=== PATIENT | male | born 1980 | race Caucasian/White ===

== ENCOUNTER 2018-03-05 07:50 | Emergency (ER) | payer SELFPAY ==
[2018-03-05] MEDS ORDERED: ASPIRIN 81 MG CHEWABLE TABLET ONE (08:15)
[2018-03-05] MEDS ORDERED: FENTANYL CITR 100 MCG/2 ML ONE (08:19)
[2018-03-05 08:35] LABS: Absolute Neutrophil 4.1 K/uL (1.8-8.0); Basophils % 0.6 % (0-1.3); Eosinophils % 0.6 % (0-4.4); Hematocrit 45.7 % (39.6-49.0); Lymphocytes % 15.9 % (15.3-44.8); MPV 8.6 fL (7.6-11.3); Monocytes % 15.9 % (3.3-12.3); RBC Red Blood Cell Count 4.86 M/uL (4.33-5.43)
[2018-03-05 08:37] LABS: Protime INR 1.13
[2018-03-05 08:57] LABS: ALT/SGPT 41 U/L (12-78); AST/SGOT 36 U/L (15-37); Albumin 3.4 g/dL (3.4-5.0); Alkaline Phosphatase 52 U/L (45-117); BUN Blood Urea Nitrogen 20 mg/dL (7-18); Bicarbonate 29 mmol/L (21-32); Bilirubin Direct 0.1 mg/dL (0-0.2); Bilirubin Total 0.5 mg/dL (0.2-1.0); Creatine Phosphokinase 142 U/L (39-308); Glucose Level 143 mg/dL (74-106); Lipase 119 U/L (73-393); Magnesium 2.6 mg/dL (1.8-2.4); Potassium 3.1 mmol/L (3.5-5.1); Protein, Total 8.2 g/dL (6.4-8.2); Sodium Level 134 mmol/L (136-145)
[2018-03-05 08:58] LABS: CKMB Creatine Kinase MB < 1.0 ng/mL (0.3-3.6); NT PRO-BNP < 5 pg/mL (<125)
[2018-03-05 09:14] LABS: Blood Morphology Comment NOT SEEN (NOT SEEN); Platelet Estimate ADEQ
[2018-03-05] MEDS ORDERED: DEXAMETHASONE 10 MG/ML VIAL ONE (09:44)
[2018-03-05] MEDS ORDERED: POTASSIUM 25 MEQ EFFERV TAB ONE (09:44)
[2018-03-05] MEDS ORDERED: NA CHLORIDE 0.9% 1,000 ML ONE (09:44)
[2018-03-05] MEDS ORDERED: KETOROLAC 30 MG/ML INJ ONE (09:44)
--- NOTE | 2018-03-05 09:51 | ER ---
Nurse's Notes [facility] Name: Kirit Piper Age: 38 yrs Sex: Male : 1980 Arrival Date: 03/05/2018 Time: 07:53 Bed 5 Private MD: Kiara Elliott Diagnosis: Acute tonsillitis;Pain in throat and chest Presentation: 03/05 07:58 Presenting complaint: Patient states: chest tightness, fever, sore throat that began 2 ss days ago. Transition of care: patient was not received from another setting of care. Onset of symptoms was March 03, 2018. Risk Assessment: Do you want to hurt yourself or someone else? Patient reports no desire to harm self or others. Initial Sepsis Screen: Does the patient meet any 2 criteria? No. Patient's initial sepsis screen is negative. Does the patient have a suspected source of infection? No. Patient's initial sepsis screen is negative. Care prior to arrival: None. 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 - Social history:: Smoking status: Patient/guardian denies using tobacco. - Ebola Screening: : Patient denies exposure to infectious person Patient denies travel to an Ebola-affected area in the 21 days before illness onset Patient denies travel to an Ebola-affected area in the 21 days before illness onset. Screenin:22 Abuse screen: Denies threats or abuse. Nutritional screening: No deficits noted. tw2 Tuberculosis screening: No symptoms or risk factors identified. Fall Risk None identified. Assessment: 08:20 General: Appears in no apparent distress. Behavior is appropriate for age. Pain: tw2 Complains of pain in "my tooth hurts but my chest feels tight too". Neuro: Level of Consciousness is awake, alert, obeys commands, Oriented to person, place, time, situation. Cardiovascular: Heart tones S1 S2 Capillary refill < 3 seconds Patient's skin is warm and dry. Respiratory: Airway is patent Respiratory effort is even, unlabored, Respiratory pattern is regular, symmetrical, Breath sounds are clear bilaterally. GI: No signs and/or symptoms were reported involving the gastrointestinal system. Abdomen is round non-distended, Bowel sounds present X 4 quads. : No signs and/or symptoms were reported regarding the genitourinary system. EENT: Throat is clear Reports "i need to get a tooth pulled or a root canal, but i dont have insurance and he wants me to take the antibiotics for 7 days before i can have it pulled". Derm: No signs and/or symptoms reported regarding the dermatologic system. Musculoskeletal: Range of motion: intact in all extremities. 08:50 Reassessment: Patient appears in no apparent distress at this time. No changes from tw2 previously documented assessment. Patient and/or family updated on plan of care and expected duration. Pain level reassessed. Patient is alert, oriented x 3, equal unlabored respirations, skin warm/dry/pink. 09:49 Reassessment: Patient appears in no apparent distress at this time. No changes from tw2 previously documented assessment. Patient and/or family updated on plan of care and expected duration. Pain level reassessed. Patient is alert, oriented x 3, equal unlabored respirations, skin warm/dry/pink. 10:50 Reassessment: educated patient on discharge instructions. Pt is attempting to find a ss friend or family member to come get him from ER and take him home. Pt reports feeling better. Vital Signs: 08:00 BP 116 / 80; Pulse 94; Resp 16; Temp 98.6(TE); Pulse Ox 96% on R/A; Weight 92.53 kg; ss Height 5 ft. 6 in. (167.64 cm); Pain 8/10; 08:49 BP 109 / 70; Pulse 73; Resp 20; Pulse Ox 96% on R/A; tw2 09:49 BP 106 / 65; Pulse 71; Resp 17; Pulse Ox 96% on R/A; tw2 10:43 BP 92 / 56; Pulse 66; Resp 14; Temp 98.7(O); Pulse Ox 96% on R/A; Pain 4/10; ss 08:00 Body Mass Index 32.93 (92.53 kg, 167.64 cm) ED Course: 07:53 Patient arrived in ED. as 07:54 Kiara Elliott is Private Physician. as 07:54 Mikhail Cruz PA is PHCP. cp 07:54 Roberto Falk MD is Attending Physician. cp 07:59 Triage completed. ss 08:00 Destiny Rodríguez RN is Primary Nurse. tw2 08:00 Arm band placed on. tw2 08:10 Bed in low position. Call light in reach. gambling monitor on. Pulse ox on. NIBP on. tw2 08:10 Initial lab(s) drawn, by me, sent to lab. Inserted saline lock: 20 gauge in right sv antecubital area, using aseptic technique. Blood collected. Flushed right antecubital with 5 ml normal saline. 08:36 X-ray completed. Portable x-ray completed in exam room. Patient tolerated procedure mh1 well. 08:41 XRAY Chest (1 view) In Process Unspecified. EDMS 10:00 Awaiting: completion of IV abx PRIOR to dischage. tw2 10:43 No provider procedures requiring assistance completed. ss 11:08 IV discontinued, intact, bleeding controlled, No redness/swelling at site. Pressure ss dressing applied. Administered Medications: 08:11 Not Given (pt allergic to hydrocodone, provider notified.): Lortab Liquid 15 ml PO once tw2 08:13 Drug: Aspirin Chewable Tablet 324 mg Route: PO; tw2 10:02 Follow up: Response: No adverse reaction tw2 08:20 Drug: fentaNYL (PF) 25 mcg Route: IVP; Site: right antecubital; tw2 09:20 Follow up: Response: No adverse reaction; Pain is decreased tw2 09:42 Drug: TORadol 30 mg Route: IVP; Site: right antecubital; sv 10:08 Follow up: Response: No adverse reaction sv 09:42 Drug: NS 0.9% 1000 ml Route: IV; Rate: 1 bolus; Site: right antecubital; sv 10:43 Follow up: IV Status: Completed infusion; IV Intake: 1000ml ss 09:44 Drug: Decadron - Dexamethasone 10 mg Route: IVP; Site: right antecubital; sv 10:07 Follow up: Response: No adverse reaction sv 09:49 Drug: Potassium Effervescent Tablet 50 mEq Route: PO; sv 10:08 Follow up: Response: No adverse reaction sv 09:52 CANCELLED (Duplicate Order): Rocephin - (cefTRIAXone) 1 grams IVPB once over 30 mins; sv (mix in 50 mL NS) 10:03 Drug: Rocephin 1 grams Route: IV; Rate: calculated rate; Site: right antecubital; sv 10:07 Follow up: Response: No adverse reaction; IV Status: Completed infusion; IV Intake: 10mlsv 10:07 Drug: Clindamycin 600 mg Route: IVPB; Infused Over: 30 mins; Site: right antecubital; sv 10:43 Follow up: IV Status: Completed infusion ss Intake: 10:07 IV: 10ml; Total: 10ml. sv 10:43 IV: 1000ml; Total: 1010ml. ss Outcome: 09:50 Discharge ordered by . cp 10:49 Condition: good ss 10:49 Discharge instructions given to patient, Pt is awaiting in exam room five for family or friend to come pick him up. Instructed on discharge instructions, follow up and referral plans. medication usage, Demonstrated understanding of instructions, follow-up care, medications, Prescriptions given X 3. 11:08 Discharged to home ambulatory, friend in lobby to pick patient up ss 11:08 Patient left the ED. ss Signatures: Dispatcher [employer] EDMS Yarely Armenta RN RN Lesli Ramirez 1 Armida Butcher Shelby, RN RN Mikhail Cruz PA PA cp Wise, Tara, RN RN tw2 Corrections: (The following items were deleted from the chart) 08:03 07:58 Acuity: BEA 3 ss ss 08:05 07:58 Acuity: BEA 4 ss ss 08:11 07:58 Presenting complaint: Patient states: fever, sore throat that began 2 days ago ss ss
--- NOTE | 2018-03-05 09:51 | EDPHYS ---
Physician Documentation [facility] Name: Kirit Piper Age: 38 yrs Sex: Male : 1980 Arrival Date: 03/05/2018 Time: 07:53 Bed 5 Private MD: Kiara Elliott ED Physician Roberto Falk HPI: 03/05 08:10 This 38 yrs old Male presents to ER via Ambulatory with complaints of Fever, cp Sore Throat, Pain All Over. 08:10 The patient or guardian reports chest pain that is located primarily in the anterior cp chest wall, bilaterally. The pain does not radiate. 08:10 Associated signs and symptoms: Pertinent positives: cough, sore throat, fever. 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 - Social history:: Smoking status: Patient/guardian denies using tobacco. - Ebola Screening: : Patient denies exposure to infectious person Patient denies travel to an Ebola-affected area in the 21 days before illness onset Patient denies travel to an Ebola-affected area in the 21 days before illness onset. ROS: 08:15 Eyes: Negative for injury, pain, redness, and discharge. cp 08:15 Constitutional: Positive for body aches, generalized pain, Negative for fever, poor PO intake. 08:15 ENT: Positive for sore throat, Negative for drainage from ear(s), ear pain, difficulty swallowing, difficulty handling secretions. 08:15 Neck: Negative for pain with movement, pain at rest, stiffness, tenderness. 08:15 Cardiovascular: Positive for chest pain, Negative for edema, palpitations. 08:15 Respiratory: Negative for cough, shortness of breath, wheezing. 08:15 Abdomen/GI: Negative for nausea, vomiting, and diarrhea, constipation, black/tarry stool, rectal bleeding. 08:15 : Negative for urinary symptoms. 08:15 Skin: Negative for cellulitis, rash. 08:15 Neuro: Negative for altered mental status, headache, syncope, near syncope, weakness. 08:15 All other systems are negative. Exam: 08:00 ECG was reviewed by the Attending Physician. cp 08:18 Constitutional: The patient appears in no acute distress, alert, awake, cp non-diaphoretic, non-toxic, well developed, well nourished. 08:18 Head/Face: Normocephalic, atraumatic. cp 08:18 Eyes: Pupils equal round and reactive to light, extra-ocular motions intact. Lids and lashes normal. Conjunctiva and sclera are non-icteric and not injected. Cornea within normal limits. Periorbital areas with no swelling, redness, or edema. 08:18 ENT: External ear(s): are unremarkable, Ear canal(s): are normal, clear, TM's: bulging, is not appreciated, bilaterally, dullness, bilaterally, erythema, is not appreciated, bilaterally, Nose: is normal, Mouth: Lips: moist, Oral mucosa: moist, Posterior pharynx: Airway: no evidence of obstruction, patent, Tonsils: bilaterally enlarged, with erythema, with exudate, Dental exam: dental caries, that is mild, diffusely, pain, that is mild, specifically in the lower left second bicuspid (#20), Voice: is normal. 08:18 Neck: External neck: is normal, ROM/movement: is normal, is supple, without pain, no range of motions limitations, no meningismus, no nuchal rigidity. 08:18 Chest/axilla: Inspection: normal, Palpation: is normal, no crepitus, no tenderness. 08:18 Cardiovascular: Rate: normal, Rhythm: regular, Edema: is not appreciated, JVD: is not appreciated. 08:18 Respiratory: the patient does not display signs of respiratory distress, Respirations: normal, no use of accessory muscles, no retractions, no splinting, no tachypnea, labored breathing, is not present, Breath sounds: are clear throughout, no decreased breath sounds, no stridor, no wheezing. 08:18 Abdomen/GI: Inspection: abdomen appears normal, Bowel sounds: active, all quadrants, Palpation: abdomen is soft and non-tender, in all quadrants, rebound tenderness, is not appreciated, voluntary guarding, is not appreciated, involuntary guarding, is not appreciated. 08:18 Back: pain, is absent, ROM is normal. 08:18 Musculoskeletal/extremity: Exam is negative for bony tenderness, calf tenderness, edema. 08:18 Skin: cellulitis, is not appreciated, no rash present. 08:18 Neuro: Orientation: to person, place \\T\\ time. Mentation: lucid, able to follow commands, Cerebellar function: is grossly normal, Motor: is normal, Sensation: is normal. Vital Signs: 08:00 BP 116 / 80; Pulse 94; Resp 16; Temp 98.6(TE); Pulse Ox 96% on R/A; Weight 92.53 kg; ss Height 5 ft. 6 in. (167.64 cm); Pain 8/10; 08:49 BP 109 / 70; Pulse 73; Resp 20; Pulse Ox 96% on R/A; tw2 09:49 BP 106 / 65; Pulse 71; Resp 17; Pulse Ox 96% on R/A; tw2 10:43 BP 92 / 56; Pulse 66; Resp 14; Temp 98.7(O); Pulse Ox 96% on R/A; Pain 4/10; ss 08:00 Body Mass Index 32.93 (92.53 kg, 167.64 cm) MDM: 07:54 Patient medically screened. cp 09:00 Differential diagnosis: abnormal EKG, acute myocardial infarction, acute pericarditis, cp chest wall pain, bronchitis, pneumonia UTI, gastroenteritis, meningitis, dehydration. 09:48 Data reviewed: vital signs, nurses notes, lab test result(s), EKG, radiologic studies, cp plain films, and as a result, I will discharge patient. 09:48 Test interpretation: by ED physician or midlevel provider: ECG. Counseling: I had a cp detailed discussion with the patient and/or guardian regarding: the historical points, exam findings, and any diagnostic results supporting the discharge/admit diagnosis, lab results, radiology results, to return to the emergency department if symptoms worsen or persist or if there are any questions or concerns that arise at home. Response to treatment: the patient's symptoms have markedly improved after treatment, patient is well hydrated. and as a result, I will discharge patient. 03/05 08:05 Order name: Basic Metabolic Panel; Complete Time: 09:26 cp 03/05 09:31 Interpretation: Normal except: NA 134; K 3.1; CL 96; GLUC 143; BUN 20; CRE 1.40; GFR 57.cp 03/05 08:05 Order name: CBC with Diff; Complete Time: 09:26 cp 03/05 08:43 Interpretation: MN% 15.9; Reviewed. cp 03/05 08:05 Order name: Ckmb; Complete Time: 09:26 cp 03/05 08:05 Order name: CPK; Complete Time: 09:26 cp 03/05 08:05 Order name: LFT's; Complete Time: 09:26 cp 03/05 08:05 Order name: Magnesium; Complete Time: 09:26 cp 03/05 08:05 Order name: NT PRO-BNP; Complete Time: 09:26 cp 03/05 08:05 Order name: PT-INR; Complete Time: 08:43 cp 03/05 08:05 Order name: Ptt, Activated; Complete Time: 08:43 cp 03/05 08:05 Order name: Troponin (emerg Dept Use Only); Complete Time: 09:26 cp 03/05 09:27 Interpretation: Within normal limits: TROPED < 0.02. cp 03/05 08:05 Order name: XRAY Chest (1 view); Complete Time: 09:59 cp 03/05 08:05 Order name: [place] Screen Profile; Complete Time: 09:29 cp / 09:29 Interpretation: MONO NEG; Reviewed. cp 03/05 08:05 Order name: Lipase; Complete Time: 09:26 cp 03/05 09:15 Order name: Manual Differential; Complete Time: 09:26 EDMS 03/05 08:05 Order name: EKG; Complete Time: 08:05 cp 03/05 08:05 Order name: Cardiac monitoring; Complete Time: 08:11 cp 03/05 08:05 Order name: EKG - Nurse/Tech; Complete Time: 08:11 cp 03/05 08:05 Order name: IV Saline Lock; Complete Time: 08: cp 03/05 08:05 Order name: Labs collected and sent; Complete Time: 08: cp 03/05 08:05 Order name: O2 Per Protocol; Complete Time: 08: cp 03/05 08:05 Order name: O2 Sat Monitoring; Complete Time: 08:11 cp EC:00 Rate is 96 beats/min. Rhythm is regular. CA interval is normal. QRS interval is normal. cp QT interval is normal. No ST changes noted. Interpreted by me. Reviewed by me. Administered Medications: 08:11 Not Given (pt allergic to hydrocodone, provider notified.): Lortab Liquid 15 ml PO once tw2 08:13 Drug: Aspirin Chewable Tablet 324 mg Route: PO; tw2 10:02 Follow up: Response: No adverse reaction tw2 08:20 Drug: fentaNYL (PF) 25 mcg Route: IVP; Site: right antecubital; tw2 09:20 Follow up: Response: No adverse reaction; Pain is decreased tw2 09:42 Drug: TORadol 30 mg Route: IVP; Site: right antecubital; sv 10:08 Follow up: Response: No adverse reaction sv 09:42 Drug: NS 0.9% 1000 ml Route: IV; Rate: 1 bolus; Site: right antecubital; sv 10:43 Follow up: IV Status: Completed infusion; IV Intake: 1000ml ss 09:44 Drug: Decadron - Dexamethasone 10 mg Route: IVP; Site: right antecubital; sv 10:07 Follow up: Response: No adverse reaction sv 09:49 Drug: Potassium Effervescent Tablet 50 mEq Route: PO; sv 10:08 Follow up: Response: No adverse reaction sv 09:52 CANCELLED (Duplicate Order): Rocephin - (cefTRIAXone) 1 grams IVPB once over 30 mins; sv (mix in 50 mL NS) 10:03 Drug: Rocephin 1 grams Route: IV; Rate: calculated rate; Site: right antecubital; sv 10:07 Follow up: Response: No adverse reaction; IV Status: Completed infusion; IV Intake: 10mlsv 10:07 Drug: Clindamycin 600 mg Route: IVPB; Infused Over: 30 mins; Site: right antecubital; sv 10:43 Follow up: IV Status: Completed infusion ss Disposition: 13:05 Co-signature as Attending Physician, Roberto Falk MD. rn Disposition: 03/05/18 09:50 Discharged to Home. Impression: Acute tonsillitis, Pain in throat and chest. - Condition is Stable. - Discharge Instructions: Nonspecific Chest Pain, Tonsillitis. - Prescriptions for Augmentin 875- 125 mg Oral Tablet - take 1 tablet by ORAL route every 12 hours for 10 days; 20 tablet. Clindamycin HCl 150 mg Oral Capsule - take 2 capsule by ORAL route every 6 hours for 10 days; 72 capsule. Ibuprofen 800 mg Oral Tablet - take 1 tablet by ORAL route every 8 hours As needed take with food; 30 tablet. - Work release form, Medication Reconciliation Form, Thank You Letter, Antibiotic Education, Prescription Opioid Use form. - Follow up: Private Physician; When: 1 - 2 days; Reason: Recheck today's complaints. - Problem is new. - Symptoms have improved. Signatures: Dispatcher [employer] Yarely Dominguez, RN RN Roberto Falk MD MD rn Smirch, Shelby, RN RN ss Page, Corey, OBI PA cp Destiny Rodríguez RN RN tw2 Corrections: (The following items were deleted from the chart) 09:52 09:44 Rocephin - (cefTRIAXone) 1 grams IVPB once over 30 mins; (mix in 50 mL NS) sv ordered. cp 11:08 09:50 03/05/2018 09:50 Discharged to Home. Impression: Acute tonsillitis; Pain in ss throat and chest. Condition is Stable. Forms are Medication Reconciliation Form, Thank You Letter, Antibiotic Education, Prescription Opioid Use. Follow up: Private Physician; When: 1 - 2 days; Reason: Recheck today's complaints. Problem is new. Symptoms have improved. cp
--- NOTE | 2018-03-05 09:58 | RAD REPORT ---
EXAM DESCRIPTION: RAD - Chest Single View - 03/05/2018 8:42 am CLINICAL HISTORY: CHEST PAIN Chest pain. COMPARISON: Chest Single View dated 11/06/2017; Abdomen 1 View (KUB) dated 02/08/2017; Chest Single Vi ew dated 12/05/2016; Chest Single View dated 03/01/2016 FINDINGS: Portable technique limits examination quality. Minimal linear atelectasis is present in the left lung base laterally. The lungs are otherwise clear. The heart is normal in size. No displaced fractures.
[2018-03-05] MEDS ORDERED: CLINDAMYCIN 600MG/D5W 600 MG/50 ML BAG IV ONE (10:02)
[2018-03-05] MEDS ORDERED: CEFTRIAXONE/SWI 1gm 1 GM/10 ML SYR ONE (10:03)
--- NOTE | 2018-03-05 21:38 | EKG ---
Test Date: 2018-03-05 Test Time: 07:54:51 [employer] Science Technician: [place] MEASUREMENT RESULTS: Intervals: Rate: 96 NM: 140 QRSD: 88 QT: 362 QTc: 457 [place]: P: 56 NM: 140 QRS: 38 T: 38 INTERPRETIVE STATEMENTS: Normal sinus rhythm Normal ECG Compared to ECG 11/06/2017 14:04:52 No significant changes Electronically Signed On 03-05-18 21:37:27 CDT by Andrey Toney
== END 2018-03-05 11:08 | disposition home or self-care (01) ==
LOC: ER 07:50
DX: J03.90 Acute tonsillitis, unspecified (principal); R07.9 Chest pain, unspecified; I10 Essential (primary) hypertension; Z88.5 Allergy status to narcotic agent; Z88.8 Allergy status to other drugs, medicaments and biological substances
CPT/HCPCS: 36415; 71045; 80048; 80076; 82550; 82553; 83690; 83735; 83880; 84484; 85025; 85610; 85730; 86308; 93005; 96365; 96375; 99284; J0696; J1100; J3010; J7030

== ENCOUNTER 2022-01-20 08:14 | Emergency (ER) | payer SELFPAY ==
--- OUTSIDE RECORDS SUMMARY | 2022-01-20 08:17 | XMS REPORT | Continuity of Care Document ---
:1980 Author Organization [facility] t Address [address] [place] [address] Care Team Providers Name Role Phone PCP, DOES NOT HAVE A Primary Care Physician Unavailable Daysi LONGORIA Attending Clinician Unavailable Daysi Fenton Attending Clinician Doctor Unassigned, Name Attending Clinician Unavailable Saw GARCES Attending Clinician Unavailable MELISSA Attending Clinician Unavailable Daysi LONGORIA Admitting Clinician Unavailable MELISSA Admitting Clinician Unavailable Problems Condition Condition Condition Status Onset Resolution Last Treating Co mments Source Name Details Category Date Date Treatment Clinician Date History of History of Disease Active U nivers hypertensi hypertensi 5-05 it y of on on 00:: [address] PVC PVC Disease Active Univers (premature (premature 5-05 [place] contractio contractio Br anch n) n) Dyslipidem Dyslipidem Disease Active U nivers ia ia 5-05 ity of 00:00: [address] Elevated Elevated Disease Active Unive rs LFTs LFTs 5-05 ity of 00:00: [address] Atypical Atypical Disease Active Unive rs chest pain chest pain 5-04 it y of 00:00: [address] Obesity Obesity Disease Active 2021-0 Univers (BMI (BMI 5-04 ity of 30-39.9) 30-39.9) 00:00: [place] 00 Medical Branch Abdominal Abdominal Disease Active Overview: Univers pain pain 01-31 Formattin ity of 00:00: g of this [place] 00 note Medical might be Branch different from the original. [id number] Diagnosis Term Speech Therapy Teacher Utility Allergies, Adverse Reactions, Alerts Allergy Allergy Status Severity Reaction(s) Onset Inactive Treating Comm ents Source Name Type Date Date Clinician LORATADI DRUG Active High Swelling Univer s NE INGREDI 01-31 ity of 00:00: [place] 00 Medical Branch HYDROCOD DRUG Active Unknown-Cmnt Un cj ONE-ACET 01-31 ity of AMINOPHE 00:00: [place] N 00 Medical Branch Loratadi Propensi Active Swelling Univ ers ne ty to 01-31 ity of adverse 00:00: [place] reaction 00 Medical s Branch Hydrocod Propensi Active Unknown - Keeps pt U nivers one-Acet ty to See comments 01-31 awake it y of aminophe adverse 00:00: [place] n reaction 00 Medical s Branch Social History Social Habit Start Date Stop Date Quantity Comments Source Exposure to Not sure [facility] SARS-CoV-2 Medical Branch (event) Tobacco use and 2020-12-28 2020-12-28 Current user Univers ity of [place] exposure 00:00:00 00:00:00 Medical Branch Sex Ass[birth year] At [birth year] [facility] [place] 00:00:00 00:00:00 Medical Branch Smoking Status Start Date Stop Date Source Never smoker [facility] xa Medical Branch Medications Ordered Filled Start Stop Current Ordering Indication Dosage Frequency Signature Comments Components Source Medication Medication Date Date Medication? Clinician (SIG) Name Name traMADoL 2021- No 50mg 50 mg, Univer s (ULTRAM) 10-30-06 Oral, ity of tablet 50 23:45: 22:48 ONCE, 1 [place] mg 00 :00 dose, On Medical 10/30/21 Branch at 1745, Routine cephALEXin 2021- Yes [id number] 500mg Take 1 Univers (KEFLEX) 10-30-14 capsule by ity of 500 mg 00:00: 04:59 mouth 2 [place] capsule 00 :00 (two) Medical times Branch daily for 7 days. ibuprofen 2020-0 Yes [id number] 600mg Take 1 Univers 600 mg 9-13 [id number] tablet by ity of tablet 00:00: mouth [place] 00 every 6 Medical (six) Branch hours as needed for Pain (scale 4-6). ibuprofen 2020-0 Yes [id number] 600mg Take 1 Univers 600 mg 9-13 [id number] tablet by ity of tablet 00:00: mouth [place] 00 every 6 Medical (six) Branch hours as needed for Pain (scale 4-6). Immunizations Ordered Filled Immunization Date Status Comments Sour e Immunization Name Name Td 2021-10-30 Completed [facility] 00:00:00 [facility] Vital Signs Vital Name Observation Time Observation Value Comments Source Systolic blood 2021-10-30 22:13:00 121 mm[Hg] [facility] Diastolic blood 2021-10-30 22:13:00 91 mm[Hg] [facility] Heart rate 2021-10-30 22:13:00 93 /min [facility] Body temperature 2021-10-30 22:13:00 36.61 Ligia [facility] Respiratory rate 2021-10-30 22:13:00 18 /min [facility] Body height 2021-10-30 22:13:00 170.2 cm [facility] Body weight 2021-10-30 22:13:00 97.07 kg [facility] BMI 2021-10-30 22:13:00 33.52 kg/m2 [facility] Oxygen saturation in 2021-10-30 22:13:00 94 /min [facility] Arterial blood by [facility] [place] [facility] Pulse oximetry [place] Procedures Procedure Date / Time Performed Performing Clinician Neris e XR FINGERS 2 VW LEFT 2021-10-30 22:40:00 Alva Longoria [facility] NOTICE OF PRIVACY 2021-10-30 22:05:11 Doctor Unassigned, No Univ [facility] PRACTICES Name [facility] Branch CONSENT/REFUSAL FOR 2021-10-30 22:04:54 [facility] AND Name Medical Branch TREATMENT Encounters Start End Encounter Admission Attending Care Care Encounter Source Date/Time Date/Time Type Type Clinicians Facility Department ID 2021-10-30 2021-10-30 Emergency X [facility] ERT [id number] Univers 16:16:00 17:34:00 ALVA merida [facility] 2021-10-30 2021-10-30 Emergency Swati [facility] [id number] Univers 16:16:00 17:34:00 Alva MANN [id number] ity of [place] [id number] 084 [place] 2021-10-30 2021-10-30 Orders Doctor GENESIS [id number] Univers 00:00:00 00:00:00 Only Unassigned, MELY [id number] ity of [place] [facility] [id number] Ran [id number] [facility] 009 Branch 2021-01-21 2021-01-21 Outpatient R DEZ [facility] [id number] Univers 11:30:00 11:30:00 SENDIL [facility] 2020-12-28 2020-12-28 Emergency X [facility] ERT [id number] Univers 15:35:00 15:35:00 CHARLEE [facility] 2020-05-08 2020-05-08 Emergency X [facility] ERT [id number] Univers 22:02:00 [facility]02[facility] 2019-[facility] 2019-08-29 Emergency X [facility] ERT [id number] Univers 00:34:05 04:39:00 CHARLEE [facility] Results This patient has no known results.
[2022-01-20 08:25] LABS: Absolute Lymphocytes (CBC) 2.8 K/uL (0.7-4.9); Hematocrit 50.6 % (39.6-49.0); Lymphocytes % 22.9 % (15.3-44.8); MPV 8.5 fL (7.6-11.3); RBC Red Blood Cell Count 5.39 M/uL (4.33-5.43)
[2022-01-20 08:28] LABS: Protime INR 0.93
[2022-01-20] MEDS ORDERED: ONDANSETRON 4 MG/2 ML VIAL ONE (08:37)
[2022-01-20] MEDS ORDERED: MORPHINE 4 MG/ML SYR ONE (08:37)
[2022-01-20] MEDS ORDERED: NA CHLORIDE 0.9% 1,000 ML ONE ×2 (08:53→10:30)
[2022-01-20 09:08] LABS: ALT/SGPT 56 U/L (12-78); AST/SGOT 30 U/L (15-37); Albumin 3.8 g/dL (3.4-5.0); Alkaline Phosphatase 59 U/L (45-117); BUN Blood Urea Nitrogen 12 mg/dL (7-18); Bicarbonate 21 mmol/L (21-32); Bilirubin Direct 0.1 mg/dL (0-0.2); Bilirubin Total 0.3 mg/dL (0.2-1.0); Glomerular Filtration Rate 95 ml/min (=/>90); Glucose Level 106 mg/dL (74-106); Magnesium 1.8 mg/dL (1.8-2.4); NT PRO-BNP 10 pg/mL (<125); Potassium 3.2 mmol/L (3.5-5.1); Protein, Total 7.4 g/dL (6.4-8.2); Sodium Level 141 mmol/L (136-145)
[2022-01-20 09:10] LABS: Troponin High Sensitivity < 3.0 pg/mL (<58.9)
--- NOTE | 2022-01-20 09:41 | RAD REPORT ---
EXAM DESCRIPTION: Shane Single View01/20/2022 8:55 am CLINICAL HISTORY: Chest pain COMPARISON: 2018 FINDINGS: The lungs appear clear of acute infiltrate. The heart is normal size IMPRESSION: No acute abnormalities displayed
--- NOTE | 2022-01-20 10:00 | RAD REPORT ---
EXAM DESCRIPTION: CT - Angio Aorta For Dissection - 01/20/2022 9:43 am CLINICAL HISTORY: . Chest and abd pain. Back pain COMPARISON: 2017 TECHNIQUE: Computed tomography angiography of the chest, abdomen pelvis were obtained. 100 cc Isovue 370 was administered intravenously. Coronal and sagittal reconstruction were performed. MIP 3D reconstruction was performed All CT scans are performed using dose optimization technique as appropriate and may include automated exposure control or mA/KV adjustment according to patient size. FINDINGS: An aortic dissection is not seen. An aortic aneurysm is not displayed. The celiac, SMA and GILBERT are patent . A lung consolidation is not present. A pericardial effusion is not seen. A pleural effusion is not no donald. Fatty liver The spleen, pancreas, adrenals and kidneys demonstrate no significant abnormality. There no evidence diverticulitis. Normal appendix Fluid is present within large and small bowel IMPRESSION: Negative for an aortic dissection. Fluid within large and small bowel is nonspecific but may indicate an enteritis
--- NOTE | 2022-01-20 12:39 | ER ---
Nurse's Notes [facility] Name: Kirit Piper Age: 41 yrs Sex: Male : 1980 Arrival Date: 01/20/2022 Time: 08:13 Bed 4 Private MD: Diagnosis: Chest pain, unspecified;Vomiting;Abdominal pain, unspecified Presentation: 01/20 08:14 Chief complaint: EMS states: CP x30 MIN. Coronavirus screen: At this time, the client bp does not indicate any symptoms associated with coronavirus-19. Ebola Screen: No symptoms or risks identified at this time. Initial Sepsis Screen: Does the patient meet any 2 criteria? HR > 90 bpm. Does the patient have a suspected source of infection? No. Patient's initial sepsis screen is negative. Risk Assessment: Do you want to hurt yourself or someone else? Patient reports no desire to harm self or others. Onset of symptoms was January 20, 2022 at 07:45. Care prior to arrival: Medication(s) given: ASA, 81 mg, x 4, Nitroglycerin, 0.4 mg SL x 1, IV initiated. 20 GA, in the left antecubital area, Glucose check: 97. 08:14 Method Of Arrival: EMS: [facility] bp 08:14 Acuity: BEA 2 bp Triage Assessment: 08:18 General: Appears distressed, uncomfortable, obese, Behavior is cooperative, appropriate bp for age, anxious. Pain: Complains of pain in anterior aspect of left upper chest. EENT: No deficits noted. Neuro: Level of Consciousness is awake, alert, obeys commands, Oriented to Appropriate for age. Cardiovascular: Rhythm is sinus tachycardia Chest pain is described as severe, quality is sharp. Respiratory: Breath sounds are clear bilaterally. GI: Reports nausea, vomiting. : No signs and/or symptoms were reported regarding the genitourinary system. Derm: Skin is diaphoretic, Skin is pale. Musculoskeletal: No deficits noted. 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 - Social history:: Smoking status: Patient denies any tobacco usage or history of. Screenin:21 Abuse screen: Denies threats or abuse. Denies injuries from another. Nutritional bp screening: No deficits noted. Tuberculosis screening: No symptoms or risk factors identified. Fall Risk None identified. Assessment: 08:21 General: SEE TRIAGE NOTE. bp 09:27 Reassessment: PT TO CT. bp 10:28 Reassessment: Patient appears in no apparent distress at this time. Patient and/or vg1 family updated on plan of care and expected duration. Pain level reassessed. Patient is alert, oriented x 3, equal unlabored respirations, skin warm/dry/pink. denies CP; states ABD pain. 11:26 Reassessment: No changes from previously documented assessment. Patient and/or family bp updated on plan of care and expected duration. Pain level reassessed. ALL CURRENT ORDERS COMPLETE. 12:23 Reassessment: No changes from previously documented assessment. Patient and/or family bp updated on plan of care and expected duration. Pain level reassessed. REPEAT TROP IN PROCESS. 13:12 Reassessment: Patient appears in no apparent distress at this time. Patient and/or vg1 family updated on plan of care and expected duration. Pain level reassessed. Patient is alert, oriented x 3, equal unlabored respirations, skin warm/dry/pink. Patient states feeling better. Vital Signs: 08:14 BP 123 / 84; Pulse 111; Resp 24; Temp 98; Pulse Ox 94% ; bp 08:30 BP 102 / 49; Pulse 93; Resp 21; Pulse Ox 90% on R/A; vg1 08:36 BP 109 / 67; Pulse 93; Resp 22; Pulse Ox 90% on R/A; vg1 08:38 BP 98 / 64; Pulse 87; Resp 19; Pulse Ox 91% on R/A; vg1 09:27 BP 106 / 74; Pulse 82; Resp 17; Pulse Ox 96% ; bp 09:53 BP 96 / 73; Pulse 70; Resp 18; Pulse Ox 100% ; vg1 10:00 BP 114 / 82; Pulse 67; Resp 16; Pulse Ox 100% ; vg1 11:00 BP 98 / 60; Pulse 73; Resp 14; Pulse Ox 100% on R/A; vg1 11:30 BP 123 / 82; Pulse 69; Resp 16; Pulse Ox 100% on R/A; vg1 12:23 BP 113 / 81; Pulse 64; Resp 16; Pulse Ox 99% ; bp ED Course: 08:13 Patient arrived in ED. iw 08:13 Freeman Manzanares PA is PHCP. jmm 08:14 Roberto Falk MD is Attending Physician. jmm 08:14 Andry Gonzalez, SHERRY is Primary Nurse. bp 08:18 Triage completed. bp 08:18 Arm band placed on. bp 08:21 Patient has correct armband on for positive identification. Bed in low position. Call bp light in reach. Side rails up X2. 08:21 Maintain EMS IV. Dressing intact. Good blood return noted. Site clean \\T\\ dry. Gauge \\T\\ bp site: 20 G LEFT AC. 08:57 XRAY Chest (1 view) In Process Unspecified. EDMS 09:45 CT Aorta for Dissection In Process Unspecified. EDMS 13:13 No provider procedures requiring assistance completed. IV discontinued, intact, vg1 bleeding controlled, No redness/swelling at site. Pressure dressing applied. Administered Medications: 08:40 Drug: Zofran (Ondansetron) 4 mg Route: IVP; Site: left antecubital; vg1 09:55 Follow up: Response: No adverse reaction; No change in condition vg1 08:42 Drug: morphine 4 mg Route: IVP; Infused Over: 4 mins; Site: left antecubital; vg1 09:55 Follow up: Response: No adverse reaction; Pain is decreased vg1 08:49 CANCELLED (Duplicate Order): NS 0.9% 1000 ml IV at 1 bolus Per protocol; 1000 mL bolus [facility] 08:55 Drug: NS 0.9% 1000 ml Route: IV; Rate: 1 bolus; Site: left antecubital; vg1 13:14 Follow up: IV Status: Completed infusion; IV Intake: 1000ml vg1 10:28 Drug: NS 0.9% 1000 ml Route: IV; Rate: 1 bolus; Site: left antecubital; vg1 13:14 Follow up: IV Status: Completed infusion; IV Intake: 1000ml vg1 Medication: 08:21 VIS not applicable for this client. bp Intake: 13:14 IV: 1000ml; Total: 1000ml. vg1 13:14 IV: 1000ml; Total: 2000ml. vg1 Outcome: 12:39 Discharge ordered by . dennis 13:13 Discharged to home ambulatory. vg1 13:13 Condition: good 13:13 Discharge instructions given to patient, Instructed on discharge instructions, follow up and referral plans. medication usage, Demonstrated understanding of instructions, follow-up care, medications, Prescriptions given X 2. 13:13 Patient left the ED. vg1 Signatures: Dispatcher [employer] EDMS Freeman Manzanares PA PA jmm Williams, Irene, Andry Knox RN, RN RN Cassy Coley RN RN vg1 Corrections: (The following items were deleted from the chart) 08:19 08:18 Allergies: No Known Drug Allergies; bp bp
--- NOTE | 2022-01-20 12:40 | EDPHYS ---
Physician Documentation [facility] Name: Kirit Piper Age: 41 yrs Sex: Male : 1980 Arrival Date: 01/20/2022 Time: 08:13 Bed 4 Private MD: ED Physician Roberto Falk HPI: 01/20 08:10 This 41 yrs old Male presents to ER via EMS with complaints of Chest Pain. jmm 08:10 The patient or guardian reports chest pain that is located primarily in the substernal [facility] area. Onset: acutely, at 07:30. The pain radiates to the left shoulder. Associated signs and symptoms: Pertinent positives: diaphoresis, nausea. The chest pain is described as aching. Duration: The patient or guardian reports a single episode, that is still ongoing. Modifying factors: The symptoms are alleviated by nothing. the symptoms are aggravated by nothing. 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 - Social history:: Smoking status: Patient denies any tobacco usage or history of. ROS: 08:10 Constitutional: Negative for fever, chills, and weight loss. jmm 08:10 Cardiovascular: Positive for chest pain. 08:10 Abdomen/GI: Positive for nausea and vomiting. 08:10 Neuro: Positive for headache. 08:10 All other systems are negative. Exam: 08:10 Head/Face: atraumatic. Eyes: EOMI, no conjunctival erythema appreciated ENT: Moist jmm Mucus Membranes Neck: Trachea midline, Supple Chest/axilla: Normal chest wall appearance and motion. 08:10 Back: Normal ROM Skin: General appearance color normal 08:10 Constitutional: The patient appears alert, awake, anxious, diaphoretic. 08:10 Cardiovascular: Rate: normal, Rhythm: regular. 08:10 Abdomen/GI: Inspection: abdomen appears normal, Bowel sounds: normal, Palpation: abdomen is soft and non-tender, in all quadrants. 08:10 Musculoskeletal/extremity: ROM: intact in all extremities. 08:10 Skin: Appearance: Color: normal in color. 08:10 Neuro: Orientation: is normal, Mentation: is normal, Memory: is normal. 08:10 Psych: Behavior/mood is pleasant, cooperative. Vital Signs: 08:14 BP 123 / 84; Pulse 111; Resp 24; Temp 98; Pulse Ox 94% ; bp 08:30 BP 102 / 49; Pulse 93; Resp 21; Pulse Ox 90% on R/A; vg1 08:36 BP 109 / 67; Pulse 93; Resp 22; Pulse Ox 90% on R/A; vg1 08:38 BP 98 / 64; Pulse 87; Resp 19; Pulse Ox 91% on R/A; vg1 09:27 BP 106 / 74; Pulse 82; Resp 17; Pulse Ox 96% ; bp 09:53 BP 96 / 73; Pulse 70; Resp 18; Pulse Ox 100% ; vg1 10:00 BP 114 / 82; Pulse 67; Resp 16; Pulse Ox 100% ; vg1 11:00 BP 98 / 60; Pulse 73; Resp 14; Pulse Ox 100% on R/A; vg1 11:30 BP 123 / 82; Pulse 69; Resp 16; Pulse Ox 100% on R/A; vg1 12:23 BP 113 / 81; Pulse 64; Resp 16; Pulse Ox 99% ; bp MDM: 08:14 Patient medically screened. dennis 12:36 Data reviewed: vital signs, nurses notes. Counseling: I had a detailed discussion with dennis the patient and/or guardian regarding: the historical points, exam findings, and any diagnostic results supporting the discharge/admit diagnosis, lab results, radiology results, the need for outpatient follow up, to return to the emergency department if symptoms worsen or persist or if there are any questions or concerns that arise at home. ED course: Normal troponin level. Patient states feeling much better. Patient did subsequently developed some abdominal pain along with having episodes of vomiting and the need to have a bowel movement. I do not currently suspect ACS. Patient advised follow-up PCP and otherwise given strict return precautions. Patient's sugars Medicare. 01/20 08:15 Order name: Basic Metabolic Panel; Complete Time: 09:11 01/20 08:15 Order name: CBC with Diff; Complete Time: 08:34 01/20 08:15 Order name: LFT's; Complete Time: 09:11 01/20 08:15 Order name: Magnesium; Complete Time: 09:11 01/20 08:15 Order name: NT PRO-BNP; Complete Time: 09:11 01/20 08:15 Order name: PT-INR; Complete Time: 08:34 01/20 08:15 Order name: Troponin HS; Complete Time: 09:11 01/20 08:15 Order name: XRAY Chest (1 view); Complete Time: 09:47 01/20 08:46 Order name: CT Aorta for Dissection; Complete Time: 10:02 01/20 11:54 Order name: Troponin High Sensitivity: repeat at 4 hr; Complete Time: 12:35 01/20 08:15 Order name: EKG; Complete Time: 08:16 01/20 08:15 Order name: Cardiac monitoring; Complete Time: 08:28 01/20 08:15 Order name: EKG - Nurse/Tech; Complete Time: 08:28 01/20 08:15 Order name: IV Saline Lock; Complete Time: 08:28 01/20 08:15 Order name: Labs collected and sent; Complete Time: 08:28 01/20 08:15 Order name: O2 Per Protocol; Complete Time: 08:28 01/20 08:15 Order name: O2 Sat Monitoring; Complete Time: 08:28 01/20 08:32 Order name: Labs - recollect needed: green top; Complete Time: 08:45 dh3 Administered Medications: 08:40 Drug: Zofran (Ondansetron) 4 mg Route: IVP; Site: left antecubital; vg1 09:55 Follow up: Response: No adverse reaction; No change in condition vg1 08:42 Drug: morphine 4 mg Route: IVP; Infused Over: 4 mins; Site: left antecubital; vg1 09:55 Follow up: Response: No adverse reaction; Pain is decreased vg1 08:49 CANCELLED (Duplicate Order): NS 0.9% 1000 ml IV at 1 bolus Per protocol; 1000 mL bolus [facility] 08:55 Drug: NS 0.9% 1000 ml Route: IV; Rate: 1 bolus; Site: left antecubital; vg1 13:14 Follow up: IV Status: Completed infusion; IV Intake: 1000ml vg1 10:28 Drug: NS 0.9% 1000 ml Route: IV; Rate: 1 bolus; Site: left antecubital; vg1 13:14 Follow up: IV Status: Completed infusion; IV Intake: 1000ml vg1 Disposition: 18:20 Co-signature as Attending Physician, Roberto Falk MD. rn Disposition Summary: 01/20/22 12:39 Discharge Ordered Location: Home jm Condition: Stable jmm Diagnosis - Chest pain, unspecified jmm - Vomiting jmm - Abdominal pain, unspecified jmm Followup: jm - With: Private Physician - When: 2 - 3 days - Reason: Recheck today's complaints, Continuance of care, Re-evaluation by your physician Discharge Instructions: - Discharge Summary Sheet jmm - Abdominal Pain, Adult jmm - Nonspecific Chest Pain, Adult jmm - Clear Liquid Diet, Adult jmm Forms: - Medication Reconciliation Form [facility] - Thank You Letter [facility] - Antibiotic Education m - Prescription Opioid Use [facility] - Work release form [facility] Prescriptions: - dicyclomine 20 mg Oral Tablet - take 1 tablet by ORAL route 4 times per day; 30 tablet; Refills: 0, Product [facility] Selection Permitted - ondansetron 4 mg Oral tablet,disintegrating - place 1 tablet by TRANSLINGUAL route every 4-6 hours; 30 tablet; Refills: 0, [facility] Product Selection Permitted Signatures: Dispatcher [employer] Freeman Etienne PA PA jmm Nieto, Roman, MD MD rn Herrera, Deanna [facility] Andry Gonzalez RN RN Cassy Coley RN RN vg1 Corrections: (The following items were deleted from the chart) 08:19 08:18 Allergies: No Known Drug Allergies; bp bp 08:49 08:48 NS 0.9% 1000 ml IV at 1 bolus Per protocol; 1000 mL bolus ordered. [facility]
[2022-01-20 13:17] VITALS: TEMP 98
[2022-01-20 13:32] VITALS: BP 113/81; O2SAT 99
--- NOTE | 2022-01-24 12:27 | EKG ---
Test Date: 2022-01-20 Test Time: 08:08:15 Electric Meter Installer: CELESTE MEASUREMENT RESULTS: Intervals: Rate: 99 MA: 152 QRSD: 80 QT: 342 QTc: 438 [place]: P: 45 MA: 152 QRS: 17 T: 27 INTERPRETIVE STATEMENTS: Normal sinus rhythm Normal ECG Compared to ECG 03/05/2018 07:54:51 No significant changes Electronically Signed On 01-24-22 12:17:54 CDT by Spencer Rogel
== END 2022-01-20 13:13 | disposition home or self-care (01) ==
LOC: ER 08:14
DX: R07.9 Chest pain, unspecified (principal); R11.10 Vomiting, unspecified; R10.9 Unspecified abdominal pain; I10 Essential (primary) hypertension; F41.9 Anxiety disorder, unspecified; Z87.442 Personal history of urinary calculi; Z88.5 Allergy status to narcotic agent; Z88.8 Allergy status to other drugs, medicaments and biological substances
CPT/HCPCS: 36415; 71045; 71275; 74175; 80048; 80076; 83735; 83880; 84484; 85025; 85610; 93005; 96361; 96374; 96375; 99284; J2405; J7030; Q9967